=== PATIENT | female | born 1990 | race African-American/Black ===

== ENCOUNTER 2018-04-08 17:42 | Emergency (ER) | payer OTHER ==
[2018-04-08 17:47] VITALS: BMI 28.1
[2018-04-08] MEDS ORDERED: SODIUM CHLORIDE 1,000 ML IV STA (19:36)
[2018-04-08] MEDS ORDERED: ACETAMINOPHEN 1000 MG/100 ML VIAL (NON FORMULARY) IVPB ONE (19:36)
--- NOTE | 2018-04-08 19:43 | PDOC ---
History of Present Illness - General Chief Complaint: Pain Stated Complaint: STOMACH PAIN Time Seen by Provider: 04/08/18 18:59 - History of Present Illness Initial Comments: 04/08/18 19:38 27 yo F with h/o jada ROLLINS, who p/w lower abdominal pain. Patient reports 3 weeks of lower, abdominal pain, now sharp, unremitting beginning at 15 :00 today. No identifiable triggers or alleviators. Patient is with LMP 4 months ago. Patient on OCP with h/o fibroids, treated surgically. Reports that lower abdominal pain is different than previous episodes of fibroid related pain. Denies pelvic pain, vaginal complains, pelvic pain, dyspareurnia. Sexually active with 1 female partner. Reports possible positive at home test today. Unable to interpret result. Nml daily BM with no BPR or change in bowel habits. Denies postprandial pain or decreased appetite. Denies F/C, N/V, CP, SOB, diarrhea, constipation, urinary complaints, hematuria , weakness, lightheadedness, sensory changes. PMHx: as noted above ROS: as noted above SHx: 1 ppw tobacco for four months. Denies Etoh or IVDA. Past History - Past Medical History Allergies/Adverse Reactions: Allergies Allergy/AdvReac Type Severity Reaction Status Date / Time No Known Drug Allergies Allergy Verified 04/08/18 17:47 shellfish derived Allergy SEVERE Verified 04/08/18 17:47 SWELLING Home Medications: Ambulatory Orders Hydrocodone/Acetaminophen [[place] 5-325 Tablet] 1 each PO TID #20 tablet MDD 4 Anemia: Yes Asthma: Yes Cancer: No Cardiac Disorders: No CVA: No COPD: No CHF: No Dementia: No Diabetes: No GI Disorders: No Disorders: No HTN: No Hypercholesterolemia: No Liver Disease: No Seizures: No Thyroid Disease: No - Reproductive History (#): 1 Spontaneous : 1 - Suicide/Smoking/Psychosocial Hx Smoking History: Current some day smoker Have you smoked in the past 12 months: No Number of Cigarettes Smoked Daily: 3 Information on smoking cessation initiated: No 'Breaking Loose' booklet given: 08/04/15 Hx Alcohol Use: No Drug/Substance Use Hx: No Substance Use Type: None Hx Substance Use Treatment: No Review of Systems - Review of Systems Comments:: 04/08/18 19:47 GENERAL/CONSTITUTIONAL: No fever or chills. No weakness. HEAD, EYES, EARS, NOSE AND THROAT: No change in vision. No ear pain or discharge. No sore throat. CARDIOVASCULAR: No chest pain or shortness of breath RESPIRATORY: No cough, wheezing, or hemoptysis. GASTROINTESTINAL: + Abdominal pain. No nausea, vomiting, diarrhea or constipation. GENITOURINARY: No dysuria, frequency, or change in urination. MUSCULOSKELETAL: No joint or muscle swelling or pain. No neck or back pain. SKIN: No rash NEUROLOGIC: No headache, vertigo, loss of consciousness, or change in strength/ sensation. ENDOCRINE: No increased thirst. No abnormal weight change HEMATOLOGIC/LYMPHATIC: No anemia, easy bleeding, or history of blood clots. ALLERGIC/IMMUNOLOGIC: No hives or skin allergy. *Physical Exam - Vital Signs Last Vital Signs Temp Pulse Resp BP Pulse Ox 98.2 F 96 H 18 143/78 99 04/08/18 17:44 04/08/18 17:44 04/08/18 17:44 04/08/18 17:44 04/08/18 17:44 - Physical Exam Comments: 04/08/18 19:48 GENERAL: Awake, alert, and fully oriented, in no acute distress HEAD: No signs of trauma, normocephalic, atraumatic EYES: PERRLA, EOMI, sclera anicteric, conjunctiva clear ENT: Hearing grossly normal, nares patent, oropharynx clear without exudates. Moist mucosa NECK: Normal ROM, supple, no lymphadenopathy, JVD, or masses LUNGS: No distress, speaks full sentences, clear to auscultation bilaterally HEART: Regular rate and rhythm, normal S1 and S2, no murmurs, rubs or gallops, peripheral pulses normal and equal bilaterally. ABDOMEN:+ Suprpapubic/lower abdominal ttp. Soft, normoactive bowel sounds. No guarding, no rebound. No masses. Neg CVA ttp. EXTREMITIES : Normal inspection, Normal range of motion, no edema. No clubbing or cyanosis. SKIN: Warm, Dry, normal turgor, no rashes or lesions noted ED Treatment Course - LABORATORY CBC & Chemistry Diagram: 04/08/18 19:50 04/08/18 19:50 Medical Decision Making - Medical Decision Making 06/16/18 19:44 27 yo F with h/o DUB, jada, who p/w lower/periumbilical abdominal pain. Patient reports possible with at home test. VSS, AF, A&Ox3. Will assess for intrauterine vs. ectopic . Possible cystitis , vs. colitis vs. appendicitis. ED Course: 04/08/18 22:13 CT AP NON CON: 04/08/18 23:37 CBC,CMP: Unremarkable UA: Neg Lipase: Neg 04/09/18 00:11 Patient stable, VSS, Patient signed out to night team. Imaging pending. *DC/Admit/Observation/Transfer Diagnosis at time of Disposition: Abdominal pain Qualifiers: Abdominal location: periumbilical Qualified Code(s): R10.33 - Periumbilical pain - Discharge Dispostion Disposition: HOME Condition at time of disposition: Stable Decision to Admit order: No - Referrals - Patient Instructions Printed Discharge Instructions: DI for Abdominal Pain-Adult Additional Instructions: Please return to the emergency department with any new or worsening symptoms or concerns. Please follow up with your primary care physician within 72 hours. - Post Discharge Activity - Attestations Physician Attestion: 04/09/18 00:01 I attest to the information provided in this note.
[2018-04-08] MEDS ORDERED: ACETAMINOPHEN INJECTION 100 ML IVPB ONE (19:46)
[2018-04-08 19:59] LABS: BASO % 0.9 % (0-2.0); EOS % 2.2 % (0-4.5); HEMATOCRIT 39.8 % (32.4-45.2); HEMOGLOBIN 13.1 GM/dL (10.7-15.3); LYMPH % 28.6 % (8-40); MCH 26.8 pg (25.7-33.7); MCHC 32.8 g/dl (32.0-36.0); MEAN CELL VOLUME 81.7 fl (80-96); MEAN PLT VOLUME 8.5 fl (7.5-11.1); MONO % 5.7 % (3.8-10.2); NEUT % 62.6 % (42.8-82.8); PLATELET COUNT 304 K/MM3 (134-434); RBC 4.87 M/mm3 (3.60-5.2); RDW 14.8 % (11.6-15.6)
[2018-04-08 20:11] LABS: INR 1.03 (0.82-1.09); PROTHROMBIN TIME (PATIENT) 11.6 SEC (9.7-13.0)
[2018-04-08 20:12] LABS: URINE APPEARANCE CLEAR; URINE BILIRUBIN NEGATIVE (<2.0 mg/dL); URINE COLOR YELLOW; URINE GLUCOSE (UA) NEGATIVE (NEGATIVE); URINE KETONE TRACE (NEGATIVE); URINE LEUK ESTERASE NEGATIVE (NEGATIVE); URINE NITRITE NEGATIVE (NEGATIVE); URINE PROTEIN NEGATIVE (NEGATIVE); URINE UROBILINOGEN NEGATIVE mg/dL (0.2-1.0)
[2018-04-08 20:17] LABS: ALBUMIN 3.5 g/dl (3.4-5.0); ANION GAP 8 (8-16); BILIRUBIN,TOTAL 0.1 mg/dL (0.2-1.0); BLOOD UREA NITROGEN 7 mg/dL (7-18); CALCIUM 9.1 mg/dL (8.5-10.1); CHLORIDE 107 mmol/L (98-107); CO2 24 mmol/L (21-32); CREATININE 0.6 mg/dL (0.55-1.02); GLUCOSE,RANDOM 80 mg/dL (74-106); POTASSIUM 3.9 mmol/L (3.5-5.1); SGOT/AST 18 U/L (15-37); SGPT/ALT 28 U/L (12-78); SODIUM 139 mmol/L (136-145); TOT PROT 8.3 g/dl (6.4-8.2)
[2018-04-08 20:18] LABS: ALK PHOS 65 U/L (45-117)
[2018-04-08 20:40] LABS: HCG,QUALITATIVE URINE NEGATIVE
--- NOTE | 2018-04-08 22:27 | PDOC ---
Attending Attestation - Resident Resident Name: Adrian Will - ED Attending Attestation I have performed the following: I have examined & evaluated the patient, The case was reviewed & discussed with the resident, I agree w/resident's findings & plan - HPI HPI: 04/08/18 22:24 27y/o F h/o fibroids s/p myomectomy p/w 2 weeks ongoing and progressive abd pain , radiates from epigastric region to suprapubic region, unlike prior fibroid pain. pain is slightly improved after food, then worsens. nausea, nbnb emesis. no diarrhea/constipation. no urinary complaints, sexually active and monogamous with occasional condom use. no h/o recurring GI/surgical issues. - Physicial Exam PE: 04/08/18 22:26 Vital signs stable Urine negative Well-appearing, smiling lying in stretcher No jaundice or pallor Abdomen is soft/nondistended. Epigastric discomfort to palpation without guarding or rebound. No CVA tenderness. - Medical Decision Making 04/08/18 22:27 27-year-old female with 2 weeks of vague abdominal complaints and nausea. Question gastritis, rule out biliary or pancreatic etiology. Not consistent with her fibroid history, exam does not localized to the pelvic region so would be atypical for PID. Labs, urinalysis are within normal limits Check CT of the abdomen and pelvis Add lipase Reassess
[2018-04-09 02:52] VITALS: BP 132/79; PULSE 86; TEMP 97.8
== END 2018-04-09 03:00 | disposition home or self-care (01) ==
LOC: JER 17:42
PROC: 3E033NZ Introduction of Analgesics, Hypnotics, Sedatives into Peripheral Vein, Percutaneous Approach (ICD-10-PCS; principal; 2018-04-08)
DX: R10.33 Periumbilical pain (principal); Z87.42 Personal history of other diseases of the female genital tract
CPT/HCPCS: 36415; 74176-TC; 80053; 81003; 83690; 84703; 85025; 85610; 87086; 99283-25; J0131; J7030